=== PATIENT | male | born 1970 | race Hispanic/Latino ===

== ENCOUNTER 2018-06-08 11:56 | Day surgery (SDC) | payer BC ==
[2018-06-01 00:07] VITALS: BMI 26.2
[2018-06-08] MEDS ORDERED: ceFAZolin 1 gm FROZEN Premix 1 GM/50 ML ML IVPB ONE (12:34)
[2018-06-08] MEDS ORDERED: Bupivacaine HCl 0.5% PF (30 ml) Inj ONE (12:34)
[2018-06-08] MEDS ORDERED: Lidocaine Hydrochloride 10 ML INJ ONE (12:34)
[2018-06-08] MEDS ORDERED: Propofol 10 mg/ml Inj (20 ML) ONE (13:40)
[2018-06-08] MEDS ORDERED: Midazolam 2 MG/2 ML VIAL ONE (13:40)
[2018-06-08] MEDS ORDERED: Lidocaine/Epinephrine 1% 1:100000 10 ML IJ ONE (13:43)
[2018-06-08] MEDS ORDERED: Bacitracin Ointment 30 GM TUBE ONE (14:13)
[2018-06-08] MEDS ORDERED: Lactated Ringer's 1,000 ML IV ONE (14:28)
[2018-06-08] MEDS ORDERED: Oxycodone/Acetaminophen 5/325 mg Tab PO PRN ×2 (14:34)
--- NOTE | 2018-06-08 14:34 | PCM.SURG1 ---
Surgeon's Initial Post Op Note - Surgeon's Notes Surgeon: Dr. Mayur Epstein DPM [employer] Intern: Dr. Sara Mendez DPM PGY-2 Type of Anesthesia: IV Sedation, Local Anesthesia Administered By: Dr. Vasquez Pre-Operative Diagnosis: Left foot plantar verruca, Chronic plantar fasciitis Operative Findings: See dictation. M: none. I: 10 cc of PRP Post-Operative Diagnosis: Same Operation Performed: 1. Excision of soft tissue mass - left foot. 2. Platelet Rich Plasma Injection Specimen/Specimens Removed: None Estimated Blood Loss: EBL {In ML}: 0 Blood Products Given: N/A Drains Used: No Drains Post-Op Condition: Good Date of Surgery/Procedure: 06/08/18 Time of Surgery/Procedure: 14:33
[2018-06-08] MEDS ORDERED: HYDROmorphone 0.5 mg/0.5 ml ISec IVP PRN (14:37)
[2018-06-08 14:43] VITALS: O2SAT 100
[2018-06-08] MEDS ORDERED: Lactated Ringer's 1,000 ML IV SCH (14:45)
[2018-06-08 15:17] VITALS: TEMP 97
[2018-06-08 16:01] VITALS: BP 112/70; PULSE 66; RESP 18
--- NOTE | 2018-06-10 08:39 | OP ---
PROCEDURE DATE: 06/08/2018 PREOPERATIVE DIAGNOSES: Left foot plantar verruca, fourth digit. Chronic plantar fasciitis. POSTOPERATIVE DIAGNOSIS: Left foot plantar verruca, fourth digit. Chronic plantar fasciitis. PROCEDURES PERFORMED: 1. Excision of soft tissue mass/verrucous lesion, left foot fourth digit. 2. Platelet-rich plasma injection. SURGEON: Mayur Carranaz DPM [employer] TOOL MAKER: Sara Mendez DPM, PGY-2. ANESTHESIOLOGIST: Dr. Vasquez. TYPE OF ANESTHESIA: IV sedation with local. INDICATIONS: The patient is a 48-year-old male with the above diagnoses. The patient is being treated by Dr. Carranza in his office as an outpatient basis, where he has exhausted multiple forms of conservative treatments, which include, but are not limited to debridement and salicylic acid. At this time, the patient seeks surgical intervention and requests surgical procedure. The patient signed the consent after careful explanation of all risks, benefits, and possible complications of the proposed procedure. No guarantees were given nor implied. N.p.o. status was confirmed prior to bringing the patient to the operating room. PREPARATION: The patient was brought into the operating room and was placed on the operating room table in supine position. After IV sedation was achieved, a total of 1:1 mixture of 19 mL of 1% lidocaine to 0.5% Marcaine plain was introduced to the patient's left foot fourth digit in a V-block type fashion. No tourniquet was applied or used during this procedure. Once the IV sedation was achieved, the foot was then prepped and draped in the usual sterile manner, and the procedure began. DESCRIPTION OF PROCEDURE: 1. Excision of soft tissue mass/verrucous lesion, left foot fourth digit: Attention was directed to the plantar aspect of the left foot fourth digit, where approximately 0.4 cm x 0.4 cm circular verrucous lesion was noted. At this time, #15 blade was used to make a circular incision on the margin of the lesion plantarly. Using brown, the lesion was lifted and deeper incision was made using the blade. Once the lesion was completely removed, the surgical wound bed was cauterized. The wound bed was then debrided with a small curette. The wound bed was then cleaned and irrigated with normal saline. The surgical site was then dried, and bacitracin was applied to the wound bed. The area was then dressed with Adaptic, DSD, then an Augustus bandage. 2. Platelet-rich plasma injection to plantar left heel: Approximately 30 mL of the patient's own blood was collected. The blood was then placed in a centrifuge at the back table. The centrifuge was then turned down, and the blood was spun utilizing a needle and syringe. Approximately 10 mL of PRP was collected in a sterile manner. Utilizing a 25-gauge needle, the 10 mL of PRP was injected in the patient's right plantar heel as well as on the medial heel. The incision site was then dressed with Betadine-soaked Adaptic and Augustus bandage. POSTOPERATIVE CONDITION: The patient tolerated the anesthesia and the procedure well and was escorted to the recovery room with vital signs stable and neurovascular status intact to the patient's left foot. The patient will remain weightbearing as tolerated in a surgical shoe. The patient will follow up with Dr. Carranza in his office within one week. Sara Mendez DPM Mayur Carranza DPM SURYA
== END 2018-06-08 16:05 | disposition home or self-care (01) ==
LOC: C.SDS 11:56
PROVIDERS: ATTEND Podiatrist Foot & Ankle Surgery
DX: B07.0 Plantar wart (principal); B07.9 Viral wart, unspecified; M72.2 Plantar fascial fibromatosis
CPT/HCPCS: 28039; J0690; J2250; J2704; J3010; J7120